=== PATIENT | female | born 1970 | race Caucasian/White ===

== ENCOUNTER 2017-11-10 18:01 | Emergency (ER) | payer SELFPAY ==
[~2017-11-10] VITALS: Ht 157.5 cm; Wt 60.0 kg
[2017-11-10 19:16] VITALS: BP 134/81
[2017-11-10] MEDS ORDERED: METHOCARBAMOL 500 MG TABLET PO ONE (19:30)
[2017-11-10] MEDS ORDERED: KETOROLAC TROMETHAMINE 60 MG/2 ML VIAL IM ONE (19:30)
== END 2017-11-10 20:28 | disposition home or self-care (01) ==
LOC: EMS 18:02
DX: R51 Headache (principal); M62.838 Other muscle spasm; R42 Dizziness and giddiness; R06.02 Shortness of breath; V49.49XA Driver injured in collision with other motor vehicles in traffic accident, initial encounter; Y93.89 Activity, other specified; Y92.89 Other specified places as the place of occurrence of the external cause; Y99.8 Other external cause status
CPT/HCPCS: 71045; 96372; 99283; J1885